=== PATIENT | female | born 1940 | race Two or more races ===

== ENCOUNTER 2020-05-06 17:35 | Emergency (ER) | payer MEDICARE, SELFPAY ==
[~2020-05-06] VITALS: Ht 152.4 cm; Wt 70.5 kg
[2020-05-06 17:36] VITALS: BP 139/88
== END 2020-05-06 18:41 | disposition left against medical advice (07) ==
LOC: EMS 17:35
DX: M25.512 Pain in left shoulder (principal); M54.2 Cervicalgia; Z53.21 Procedure and treatment not carried out due to patient leaving prior to being seen by health care provider

== ENCOUNTER 2020-05-06 22:50 | Emergency (ER) | payer MEDICARE, OTHER ==
[~2020-05-06] VITALS: Ht 149.9 cm; Wt 70.0 kg
[2020-05-07] MEDS ORDERED: LIDOCAINE 5% TRANSDERMAL PATCH TD ONE
[2020-05-07] MEDS ORDERED: IBUPROFEN 400 MG TABLET PO ONE
[2020-05-07] MEDS ORDERED: ACETAMINOPHEN 325 MG TABLET PO ONE
[2020-05-07 00:26] VITALS: BP 140/78
== END 2020-05-07 00:56 | disposition home or self-care (01) ==
LOC: EMS 22:50
DX: M19.011 Primary osteoarthritis, right shoulder (principal); M19.012 Primary osteoarthritis, left shoulder; M54.9 Dorsalgia, unspecified
CPT/HCPCS: Z7502; Z7610